=== PATIENT | male | born 1985 | race Caucasian/White ===

== ENCOUNTER 2023-07-06 13:47 | Emergency (ER) | payer BC, SELFPAY ==
--- NOTE | ~2023-07-06 | XR_ITS ---
PA, oblique, and lateral views of the right third finger Clinical history injury FINDINGS: There is an acute, displaced fracture the very distal tuft of the third distal phalanx. No other fracture or dislocation seen. Soft tissues are unremarkable. Joint spaces are intact. IMPRESSION: Small displaced fracture of the very distal tuft of the third distal phalanx. Reviewed, dictated and finalized at location . [facility] [employer]
[2023-07-06 13:48] VITALS: BP 153/108; PULSE 97; RESP 20; TEMP 36.4; O2SAT 100
--- NOTE | 2023-07-06 13:49 | ED.UPPEXIN ---
HPI - Extremity Injury (Upper) General Chief Complaint: Extremity Injury, Upper Stated Complaint: R middle finger injury Time Seen by Provider: 07/06/23 13:49 Source: patient Mode of arrival: ambulatory Limitations: no limitations History of Present Illness HPI narrative: Yaw is a 37-year-old male patient presenting to the ER today with complaints of a finger injury to the right 3rd middle finger. States that he was lifting up a chair yesterday in the chair was broke and he cut the tip of his finger on the metal under the chair. Reports that part of the nail has been removed. Bleeding is controlled. This happened around 6:00 last night. Tetanus is unknown. Related Data Allergies Allergy/AdvReac Type Severity Reaction Status Date / Time Sulfa (Sulfonamide Allergy Rash Verified 07/06/23 13:52 Antibiotics) Review of Systems Review of Systems: Pertinent positives per HPI. Patient denies any fever, chills, rash, headache, visual changes, dizziness, cough, runny nose, sore throat, shortness of breath, chest pain, palpitations, nausea, vomiting, diarrhea, constipation, abdominal pain, or any urinary issues. Exam Narrative: General: Well-developed, well nourished, in no apparent distress Head: Normocephalic, atraumatic. Cardio: Regular rate and rhythm, s1 and s2 normal, no murmur appreciated. Resp: Clear to auscultation bilaterally, no rhonchi, rales, wheezing or rubs. Musculoskeletal: No deformity, tender to palpation over the distal tip of the finger, avulsion slap flap-like laceration with partial removal of the nail to the distal right 3rd phalanx, approx 1 cm laceration to medial and lateral finger from skin flap, grossly normal range of motion, muscle strength strong and equal, peripheral pulse strong, no edema, no cyanosis, normal gait and station Procedures Laceration Laceration 1: Date: 07/06/23 Site: hand (right 3rd finger) Side (If applicable): right Size (cm): 1 Description: flap Depth: simple, single layer Local Anesthetic: lidocaine 1% Amount of anesthesia used (mL): 1 Pre-repair: wound explored and irrigated ====== Skin Level ====== Skin layer closed with: nylon Size (cm): 5-0 Number of sutures: 3 Technique: simple, interrupted ====== Subcutaneous Layer ====== ====== Muscle Layer ====== ====== Tendon Layer ====== Dressing: Verbal consent obtained for laceration repair. Risk and benefits explained and patient voiced understanding. Area was cleansed with antiseptic soap and a 25 gauge needle was then used to instill (1) ml of 1% lidocaine without epi into the wound edges. Area was prepped and draped using sterile technique. A 5-0 suture on a p needle was used to place (3) interrupted sutures bringing the wound edges together- well approximated. Two sutures placed on the lateral aspect and 1 suture placed on the medial aspect of laceration, patient tolerated procedure well. Sterile dressing applied. MDM - Extremity Injury (Upper) MDM Narrative Medical decision making narrative: At the time of visit patient is resting comfortably on the exam table. Patient appears to be nontoxic. Diagnostics: X-ray shows a displaced tuft fracture to the tip of the right 3rd phalanx-metal finger splint applied Plan: Laceration repair was performed. Three interrupted sutures were placed. No sutures were placed to the proximal phlegm as it was secured to the wound bed, patient tolerated well. Will place the patient on cephalexin. Tdap shot was given in the ER. Metal finger splint was applied. Referral to Dr. Velasco- plastics/hand surgeon was given. Supportive measures were discussed with the patient and they voiced understanding discharge instructions and agrees to treatment plan. Return precautions reviewed Differential Diagnosis Differential diagnosis: Likely finger sprain and other (Skin a
[2023-07-06] MEDS: TETANUS,DIPHTHERIA,AC PERTUSSIS ADULT (0.5 ML) BOOSTRIX IM (13:59)
[2023-07-06] MEDS: LIDOCAINE HCL 1% PF INJ 5 ML VIAL INFILTRATE (14:49)
== END 2023-07-06 15:10 | disposition home or self-care (01) ==
PROVIDERS: Emergency Provider Nurse Practitioner Family
DX: S62.632B Displaced fracture of distal phalanx of right middle finger, initial encounter for open fracture (principal); Z23 Encounter for immunization; W26.8XXA Contact with other sharp object(s), not elsewhere classified, initial encounter
CPT/HCPCS: 12001; 29130; 73140; 90471; 90715; 99284